=== PATIENT | female | born 1940 | race Caucasian/White ===

== ENCOUNTER 2025-05-01 12:42 | Outpatient (CLI) | payer MEDICARE, SELFPAY ==
--- NOTE | 2025-05-01 13:03 | XR_ITS ---
WS: [id number] Lumbar spine with flexion, extension, and neutral lateral, 05/01/2025 Clinical Data: LOW BACK PAIN Comparison: None. Findings: There are compression fractures of the L2 and L3 vertebral bodies with loss of at least 50% of the central vertebral body height. No retropulsion is seen. Disc narrowing is present at L4-L5. There is diffuse osteoporosis with osteoarthritic spurring of the L2-L5 vertebral bodies. No instability occurs on flexion or extension. XR/XR lumbar spine f/e only [id number] Impression: 1. Compression fractures of L2 and L3 vertebral bodies. 2. 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 3. Disc narrowing L4-L5. 4. No instability on flexion or extension
== END 2025-05-01 12:43 | disposition home or self-care (01) ==
LOC: RAD 12:55
PROVIDERS: Visit Provider Nurse Practitioner
DX: M54.59 Other low back pain (principal); M48.061 Spinal stenosis, lumbar region without neurogenic claudication; M81.0 Age-related osteoporosis without current pathological fracture; M48.56XA Collapsed vertebra, not elsewhere classified, lumbar region, initial encounter for fracture; M77.8 Other enthesopathies, not elsewhere classified; M46.06 Spinal enthesopathy, lumbar region
CPT/HCPCS: 72120

== ENCOUNTER → 2025-05-04 13:53 | Outpatient (BNVA) | payer MEDICARE, SELFPAY | PROVIDERS: PCP Nurse Practitioner; Visit Provider Orthopaedic Surgery | DX: S32.020A Wedge compression fracture of second lumbar vertebra, initial encounter for closed fracture (principal); S32.030A Wedge compression fracture of third lumbar vertebra, initial encounter for closed fracture; X58.XXXA Exposure to other specified factors, initial encounter | CPT/HCPCS: 99203 ==

== ENCOUNTER 2025-05-17 16:17 | Outpatient (CLI) | payer MEDICARE, SELFPAY ==
--- NOTE | 2025-05-17 16:45 | MR_ITS ---
WS: [id number] MRI LUMBAR SPINE NONCONTRAST TECHNIQUE: Sagittal T1, T2 and STIR imaging. Axial T1 and T2 imaging. CLINICAL INFORMATION: low back pain COMPARISON: None. FINDINGS: Acute appearing biconcave compression L2 with loss of approximately 40% vertebral body height centrally. Mild retropulsion posterior superior cortex with mild central canal stenosis and impingement on the subarticular recess. Edema in the L2 vertebral body. Subacute compression inferior end plate L3 with a small amount of edema. Mild retropulsion of the posterior inferior cortex with moderate to severe central canal stenosis and impingement on the subarticular recess. Slight anterolisthesis L4 on L5 and L5 on S1. 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 L1-L2: Tiny RIGHT foraminal protrusion L1-2 with mild RIGHT foraminal narrowing. Mild facet arthropathy. L2-L3: Retropulsion superior endplate L2 with mild central canal stenosis. Moderate facet arthropathy. Tiny RIGHT foraminal protrusion. Mild RIGHT foraminal narrowing. Slight narrowing of the RIGHT subarticular recess. L3-L4: Retropulsion of the posterior inferior endplate L3 with moderate to severe central canal stenosis and impingement subarticular recess. Crowding of the cauda equina nerve rootlets. Moderate facet arthropathy. Moderate LEFT foraminal narrowing. Tiny LEFT synovial cyst L4-L5: Mild annular bulging. Mild bilateral foraminal narrowing with eccentric disc bulging and small foraminal protrusions. Moderate to advanced facet arthropathy. Mild to moderate central canal stenosis with impingement of traversing L5 nerve roots bilaterally. L5-S1: Grade 1 anterolisthesis. Mild disc bulging with impingement on the traversing LEFT S1 nerve root. Advanced facet arthropathy. Mild LEFT foraminal narrowing. Partially visualized RIGHT hydronephrosis or parapelvic renal cyst. Sigmoid diverticulosis. MR/MR lumbar spine wo con* [id number] IMPRESSION: 1. Acute appearing biconcave compression L2 with loss of approximately 40% cody tebral body height centrally. Mild retropulsion posterior superior cortex with mild central canal stenosis and impingement on the subarticular recess. Edema i n the L2 vertebral body. 2. Subacute compression inferior end plate L3 with a small amount of edema. Mi ld retropulsion of the posterior inferior cortex with moderate to severe centra l canal stenosis and impingement on the subarticular recess. 3. Mild central canal stenosis L4-L5. 4. Disc bulging L5-S1 impinges the LEFT S1 nerve root. 5. Partially visualized RIGHT hydronephrosis or parapelvic renal cyst. This ca n be further evaluated with CT abdomen pelvis. No comparisons.
== END 2025-05-17 16:18 | disposition home or self-care (01) ==
LOC: RAD 16:18
PROVIDERS: PCP Nurse Practitioner; Visit Provider Orthopaedic Surgery
DX: M47.816 Spondylosis without myelopathy or radiculopathy, lumbar region (principal); S32.030A Wedge compression fracture of third lumbar vertebra, initial encounter for closed fracture; S32.021A Stable burst fracture of second lumbar vertebra, initial encounter for closed fracture; X58.XXXA Exposure to other specified factors, initial encounter; M48.061 Spinal stenosis, lumbar region without neurogenic claudication; M46.96 Unspecified inflammatory spondylopathy, lumbar region; M51.27 Other intervertebral disc displacement, lumbosacral region; M51.17 Intervertebral disc disorders with radiculopathy, lumbosacral region; N28.1 Cyst of kidney, acquired
CPT/HCPCS: 72148

== ENCOUNTER → 2025-05-25 12:54 | Outpatient (BNVA) | payer MEDICARE, SELFPAY | PROVIDERS: PCP Nurse Practitioner; Visit Provider Orthopaedic Surgery | DX: S32.020A Wedge compression fracture of second lumbar vertebra, initial encounter for closed fracture (principal); S32.030A Wedge compression fracture of third lumbar vertebra, initial encounter for closed fracture; X58.XXXA Exposure to other specified factors, initial encounter; Z01.818 Encounter for other preprocedural examination; Z09 Encounter for follow-up examination after completed treatment for conditions other than malignant neoplasm | CPT/HCPCS: 36415; 80053; 81001; 85025; 99214 ==

== ENCOUNTER 2025-06-30 06:17 | Day surgery (SDC) | payer MEDICARE, SELFPAY ==
[2025-06-30] VITALS (10 sets, daily range): BP systolic 137–169; BP diastolic 72–89; PULSE 67–92; RESP 10–18; TEMP 35.8–36.5; O2SAT 95–100; BMI 23.2
--- NOTE | 2025-06-30 06:18 | ANES.PREANE2 ---
Pre-Anesthetic Assessment Height/Weight: Height 5 ft 6 in Preop Diagnosis: Osteoporotic wedge traumatic compression fractures at lumbar 2 and lumbar 3 Operation Date: 06/30/25 07:00 Proposed Procedures p Lumbar Kyphoplasty(Not Applicable) - Nando Becker, DO Was Beta Terell taken within 24 hours: Yes Was Clonidine taken within 24 hours: N/A Social No alcohol and No tobacco Exam alert, clear to auscultation bilaterally and regular rate & rhythm Alert to person Airway Submandibular: within normal limits Cervical ROM: within normal limits Mallampati: Class III Dentition: false and partials Comments: Comments: Patient has upper false teeth and lower partial, denies any loose teeth Anesthetic Plan ASA status: 3 Anesthesia: General Other: No prior issues with anesthesia NPO since yesterday evening Patient has dementia at baseline, her niece (POA) is at bedside History of hypertension on losartan and metoprolol CAD history, s/p PCI in 2009. No blood thinners at baseline Labs reviewed from 05/25/2025 and acceptable for procedure. NA 131 at that time I did speak with patient's niece about the increased risk of delirium in the postop setting. She states that she understands and would like to proceed at this time Plan for GETA Medications/Allergies Home Medications ?Medication ?Instructions ?Recorded ?Confirmed ?Last Taken ?Type albuterol sulfate 90 mcg/actuation 2 puff inhalation QID PRN sob 06/29/25 06/29/25 06/29/25 History aerosol inhaler cholecalciferol (vitamin D3) 125 125 mcg PO DAILY 06/29/25 06/29/25 06/29/25 History mcg (5,000 unit) tablet (Vitamin D3) donepezil 10 mg tablet 10 mg PO DAILY 06/29/25 06/29/25 06/29/25 History latanoprost 0.005 % eye drops 1 drp ophthalmic (eye) DAILY 06/29/25 06/29/25 06/29/25 History losartan 50 mg tablet 50 mg PO BID 06/29/25 06/29/25 06/29/25 History memantine 5 mg tablet 5 mg PO BID 06/29/25 06/29/25 06/29/25 History metoprolol tartrate 50 mg tablet 50 mg PO DAILY 06/29/25 06/29/25 06/29/25 History mometasone-formoterol HFA 100 2 puff inhalation Q12H 06/29/25 06/29/25 06/29/25 History mcg-5 mcg/actuation aerosol inhaler (Dulsteffi) oxybutynin chloride 10 mg 10 mg PO DAILY 06/29/25 06/29/25 06/29/25 History tablet,extended release 24 hr Allergies Allergy/AdvReac Type Severity Reaction Status Date / Time No Known Allergies Allergy Unverified 05/25/25 07:30 [facility] Anesthesia Social History Smoking and tobacco/nicotine status: never used tobacco/nicotine
--- NOTE | 2025-06-30 06:56 | W.PM.OPSFHP ---
Same Day Surgery H&P Indication for Procedure/HPI DATE OF PROCEDURE: June 30, 2025 CHIEF COMPLAINT/INDICATIONFOR SURGICAL PROCEDURE: Back pain PREOP DIAGNOSIS: Osteoporotic wedge traumatic compression fractures at lumbar 2 and lumbar 3 PLANNED PROCEDURE: Operation Date: 06/30/25 07:00 Proposed Procedures p Lumbar Kyphoplasty(Not Applicable) - Nando Becker, DO Medications/Allergies* Home Medications ?Medication ?Instructions ?Recorded ?Confirmed ?Type albuterol sulfate 90 mcg/actuation 2 puff inhalation QID PRN sob 06/29/25 06/29/25 History aerosol inhaler cholecalciferol (vitamin D3) 125 125 mcg PO DAILY 06/29/25 06/29/25 History mcg (5,000 unit) tablet (Vitamin D3) donepezil 10 mg tablet 10 mg PO DAILY 06/29/25 06/29/25 History latanoprost 0.005 % eye drops 1 drp ophthalmic (eye) DAILY 06/29/25 06/29/25 History losartan 50 mg tablet 50 mg PO BID 06/29/25 06/29/25 History memantine 5 mg tablet 5 mg PO BID 06/29/25 06/29/25 History metoprolol tartrate 50 mg tablet 50 mg PO DAILY 06/29/25 06/29/25 History mometasone-formoterol HFA 100 2 puff inhalation Q12H 06/29/25 06/29/25 History mcg-5 mcg/actuation aerosol inhaler (Dulera) oxybutynin chloride 10 mg 10 mg PO DAILY 06/29/25 06/29/25 History tablet,extended release 24 hr Allergies/Adverse Reactions Allergy/AdvReac Type Severity Reaction Status Date / Time No Known Allergies Allergy Unverified 05/25/25 07:30 Current Medications: Generic Name Dose Route Start Last Admin Trade Name Freq PRN Reason Stop Dose Admin Sodium Chloride 1,000 mls @ 30 mls/hr 06/30/25 06:30 06/30/25 06:43 Sodium Chloride 0.9% IV 07/01/25 06:29 30 mls/hr .Q24H MIRTA Administration Pertinent History/Comorbid Conditions* Social History Smoking and tobacco/nicotine status: never used tobacco/nicotine Pertinent Exam Findings alert, oriented x 3 and procedure specific exam findings Recommendations Risks and benefits of procedure reviewed Surgery/Procedure today Coding Level of Care Code Acute Code for Chg Fwd
[2025-06-30] MEDS: ceFAZolin 2,000 mg SDV 2000 MG IVP (07:00)
[2025-06-30] MEDS: lidocaine-epi 1% 20 mL INJ 10 ML INJECTION (07:44)
[2025-06-30] MEDS: iohexol 300 mg/mL 50 mL Btl XX (07:46)
--- NOTE | 2025-06-30 08:08 | XR_ITS ---
WS: [id number] XR lumbar spine 2-3V* [id number] REASON FOR EXAM: OR PICS FINDINGS: Vertebroplasty at L2 and L3 compression fractures. XR/XR lumbar spine 2-3V* [id number] IMPRESSION: Vertebroplasty as above.
--- NOTE | 2025-06-30 08:21 | PM.OP ---
Operative Report Date of procedure: June 30, 2025 Pre-op diagnosis: 1. L2 osteoporotic wedge traumatic compression fracture 2, L3 osteoporotic wedge traumatic compression fracture Post-op diagnosis: same Procedure done: 1. L2 kyphoplasty 2. L3 kyphoplasty Surgeon: Nando Becker DO Estimated blood loss (mL): 5 Procedure: 1. L2 kyphoplasty 2. L3 kyphoplasty Patient is brought to the operative suite after undergoing anesthesia was placed in the prone position. All areas impingement well-padded. Patient was prepped and draped normal sterile fashion. Biplanar fluoroscopy was used. The L3 level was identified. Skin incisions made on the left a awl was inserted followed by the drill followed by the balloon. There was a breach in the endplate of the inferior endplate so elected to do a right sided approach as well. Skin incision was made on the right pedicle. The awl was inserted followed by the drill followed by balloon. Cement was then injected after balloon was removed. Only injected on the right side. The body had a good fill did not leak into the disc base at all. Next tension was brought to the L2 level. Again a skin incision was made at this time I used the right side the awl was inserted through the pedicle followed by the drill followed by the balloon. And then cement was injected. Again spine had good flow throughout the vertebral body. AP lateral fluoroscopy ensured that the cement was in good position. Wounds were irrigated and closed with nylon suture. Sterile dressings were applied and patient transferred to the PACU in stable condition.
--- NOTE | 2025-06-30 09:10 | ANE.PACU2 ---
Inpatient post-anesthesia follow up: Airway intact: Yes Vital signs: Temperature 97.0 F Pulse Rate 84 Respiratory Rate 18 Blood Pressure 147/72 Pulse Oximetry 96 Oxygen Delivery Me thod Room Air Oxygen Flow Rate Fraction of Inspir ed Oxygen Hydration adequate: Yes Nausea and vomiting: No Pain level: 1 Mental status: Baseline
== END 2025-06-30 09:10 | disposition home or self-care (01) ==
PROVIDERS: PCP Nurse Practitioner; Visit Provider Orthopaedic Surgery
PROC: 0QS03ZZ Reposition Lumbar Vertebra, Percutaneous Approach (ICD-10-PCS; CPT 22514; principal; 2025-06-30 07:00)
DX: M48.56XA Collapsed vertebra, not elsewhere classified, lumbar region, initial encounter for fracture (principal); I10 Essential (primary) hypertension; I25.10 Atherosclerotic heart disease of native coronary artery without angina pectoris
CPT/HCPCS: 22514; 22515; 72100; 76000; J0131; J0330; J0690; J1100; J1885; J2405; J2704; J3010; J3490; J7030; J9999; Q9967

== ENCOUNTER → 2025-07-13 14:25 | Outpatient (BNVA) | payer MEDICARE, SELFPAY | PROVIDERS: PCP Nurse Practitioner; Visit Provider Orthopaedic Surgery | DX: Z98.890 Other specified postprocedural states (principal); Z48.89 Encounter for other specified surgical aftercare | CPT/HCPCS: 99024 ==